=== PATIENT | male | born 1960 | race Two or more races ===

== ENCOUNTER 2022-01-01 18:52 | Emergency (ER) | payer OTHER, MEDICARE ==
[~2022-01-01] VITALS: Ht 167.6 cm; Wt 59.0 kg
[2022-01-01 18:54] VITALS: BP 118/72
[2022-01-02] MEDS ORDERED: LEVETIRACETAM 500MG TABLET PO SCH (09:00)
== END 2022-01-01 21:45 | disposition left against medical advice (07) ==
LOC: ER 18:52
DX: G40.909 Epilepsy, unspecified, not intractable, without status epilepticus (principal)
CPT/HCPCS: 99283